=== PATIENT | male | born 1985 | race American Indian/Alaskan Native ===

== ENCOUNTER 2017-07-14 09:18 | Inpatient (IN) | payer BC ==
[2017-07-14] MEDS ORDERED: Sodium Chloride 0.9% 1,000 ML IV STA ×2 (09:48→11:53)
[2017-07-14 10:15] LABS: BASO # 0.1 K/uL (0.0-0.2); BASO % 0.6 % (0.0-2.0); EOS # 0.2 K/uL (0.0-0.7); EOS % 1.5 % (0.0-4.0); HEMOGLOBIN 14.2 g/dL (12.0-18.0); LYMPH # 2.2 K/uL (1.0-4.3); LYMPH % 15.1 % (20.0-40.0); MEAN CELL VOLUME 92.7 fl (80.0-94.0); MEAN CORPUSCULAR HEMOGLOBIN 31.1 pg (27.0-31.0); MEAN CORPUSCULAR HGB CONC 33.5 g/dL (33.0-37.0); MEAN PLATELET VOLUME 8.5 fl (7.2-11.7); MONO # 0.9 K/uL (0.0-0.8); MONO % 6.4 % (0.0-10.0); NEUT # 11.1 K/uL (1.8-7.0); NEUT % 76.4 % (50.0-75.0); NRBC % 0.1 % (0.0-0.0); RBC 4.56 Mil/uL (4.40-5.90); RED CELL DISTRIBUTION WIDTH 14.1 % (11.5-14.5); WHITE BLOOD COUNT 14.6 K/uL (4.8-10.8)
[2017-07-14 10:27] LABS: ALB/GLOB RATIO 1.5 (1.0-2.1); ALBUMIN 4.7 g/dL (3.5-5.0); ALT/SGPT 53 U/L (21-72); AST/SGOT 95 U/L (17-59); BLOOD UREA NITROGEN 15 mg/dl (9-20); GFR AFRICAN-AMERICAN > 60; GFR NON-AFRICAN AMERICAN > 60; LIPASE 66 U/L (23-300)
--- NOTE | 2017-07-14 10:42 | ED PDOC ---
HPI: Abdomen Time Seen by Provider: 07/14/17 09:47 Chief Complaint (Nursing): Abdominal Pain Chief Complaint (Provider): epigastric pain History Per: Patient History/Exam Limitations: no limitations Onset/Duration Of Symptoms: Hrs (1) Outside of [place] travel?: No Current Symptoms Are (Timing): Still Present Location Of Pain/Discomfort: Epigastric Quality Of Discomfort: Sharp, Cramping Associated Symptoms: Nausea, Vomiting, Loss Of Appetite Exacerbating Factors: None Alleviating Factors: None Additional Complaint(s): 31yo male presents c/o sudden onset upper abd pain associated with nonbloody vomiting. Started while at work, has had similar episodes in past. Denies alcohol use, melena, fever, chest pain or SOB. +vomiting in ED. Past Medical History Reviewed: Historical Data, Nursing Documentation, Vital Signs Vital Signs: Last Vital Signs Temp 98.4 F 07/14/17 11:41 Pulse 57 L 07/14/17 11:41 Resp 16 07/14/17 11:41 BP 148/71 07/14/17 11:41 Pulse Ox 100 07/14/17 10:42 - Medical History PMH: Hiatal Hernia (2017) Other PMH: gastritis takes protonix daily - Family History Family History: States: Unknown Family Hx - Social History Alcohol: None - Immunization History Hx Tetanus Toxoid Vaccination: No Hx Influenza Vaccination: Yes Hx Pneumococcal Vaccination: No - Home Medications Home Medications: Ambulatory Orders Medication Instructions Recorded Pantoprazole Sodium [Protonix] 1 tab PO DAILY 07/14/17 - Allergies Allergies/Adverse Reactions: Allergies Allergy/AdvReac Type Severity Reaction Status Date / Time No Known Allergies Allergy Verified 02/02/17 20:17 Review of Systems ROS Statement: Except As Marked, All Systems Reviewed And Found Negative Constitutional: Negative for: Fever, Chills Cardiovascular: Negative for: Chest Pain, Palpitations Respiratory: Negative for: Cough, Shortness of Breath Gastrointestinal: Positive for: Nausea, Vomiting, Abdominal Pain Genitourinary Male: Negative for: Dysuria Musculoskeletal: Negative for: Neck Pain Skin: Negative for: Rash, Lesions, Jaundice Neurological: Negative for: Weakness Physical Exam - Reviewed Nursing Documentation Reviewed: Yes Vital Signs Reviewed: Yes - Physical Exam Appears: Positive for: Well, Non-toxic, No Acute Distress Head Exam: Positive for: ATRAUMATIC, NORMAL INSPECTION, NORMOCEPHALIC Skin: Positive for: Normal Color, Warm, DRY Eye Exam: Positive for: EOMI, Normal appearance, PERRL ENT: Positive for: Normal ENT Inspection Neck: Positive for: Normal, Painless ROM Cardiovascular/Chest: Positive for: Regular Rate, Rhythm Respiratory: Positive for: CNT, Normal Breath Sounds Gastrointestinal/Abdominal: Positive for: Bowel Sounds, Soft. Negative for: Tenderness, Guarding Back: Positive for: Normal Inspection Extremity: Positive for: Normal ROM Neurologic/Psych: Positive for: Alert, Oriented. Negative for: Motor/Sensory Deficits - Laboratory Results Result Diagrams: 07/14/17 10:11 07/14/17 10:11 - ECG O2 Sat by Pulse Oximetry: 100 Medical Decision Making Medical Decision Making: workup for abd pain and vomiting initiated, labs, zofran, toradol and IVF ordered. labs reviewed, +elevated WBC w left shift and mild elev transaminases. normal TBili and Alk phos, normal renal function. Accession No. : [id number] Patient Name / ID : EBONY MARIN / [id number] Exam Date : 07/14/2017 12:31:13 ( Approved ) Study Comment : Sex / Age : M / 31Y Creator : Vaughn Flores MD Dictator : Vaughn Flores MD Vegetable [employer] Farmworker : Respiratory Care Assistant : Vaughn Flores MD Approver2 : Report Date : 07/14/2017 13:06:07 My Comment : PROCEDURE: CT Abdomen and Pelvis with contrast HISTORY: upper abd pain vomiting elev WBC COMPARISON: None. TECHNIQUE: Contrast dose: 95 mL Omnipaque 300 Radiation dose: Total exam DLP = 427.98 mGy-cm. This CT exam was performed using one or more of the following dose reduction techniques: Automated exposure control, adjustment of the mA and/or kV according to patient size, and/or use of iterative reconstruction technique. FINDINGS: LOWER THORAX: Unremarkable. LIVER: Minimal hepatomegaly. The liver measures approximately 19.2 cm craniocaudal. Smooth contour. No mass. No biliary dilatation. There is mild nonspecific periportal edema. GALLBLADDER AND BILE DUCTS: Gallbladder wall is diffusely thickened/ edematous. No calcified gallstones are identified. The gallbladder appears nondistended. PANCREAS: Unremarkable. No gross lesion or ductal dilatation. SPLEEN: Unremarkable. ADRENALS: Unremarkable. No mass. KIDNEYS AND URETERS: Unremarkable. No hydronephrosis. No solid mass. VASCULATURE: Unremarkable. No aortic aneurysm. BOWEL: Unremarkable. No obstruction. No gross mural thickening. APPENDIX: Normal appendix. PERITONEUM: Unremarkable. No free fluid. No free air. LYMPH NODES: Unremarkable. No enlarged lymph nodes. BLADDER: Unremarkable. REPRODUCTIVE: Normal prostate BONES: No acute fracture. OTHER FINDINGS: None. IMPRESSION: Nonspecific periportal edema. Nonspecific gallbladder wall thickening/ edema without evidence of calcified gallstones. No other significant abnormality. No evidence of biliary obstruction. Accession No. : [id number] Patient Name / ID : EBONY MARIN / [id number] Exam Date : 07/14/2017 14:31:09 ( Approved ) Study Comment : Sex / Age : M / 31Y Creator : Lisette Lewis Dictator : Lisette Lewis Vegetable I Farmworker : Respiratory Care Assistant : Lisette Lewis Approver2 : Report Date : 07/14/2017 15:15:02 My Comment : HISTORY: RUQ US for abnormal GB on CT COMPARISON: None. TECHNIQUE: Sonographic evaluation of the right upper quadrant of the abdomen. FINDINGS: LIVER: Measures 15.3 cm in length. Normal echogenicity of the liver parenchyma. No mass. No intrahepatic bile duct dilatation. GALLBLADDER: No gallstones are gallbladder sludge appreciated. No gross polyps appreciated. The gallbladder wall however is thickened measuring up to 6 mm. No positive sonographic Ennis sign is technologist reported. The gallbladder wall is mild - moderately distended COMMON BILE DUCT: Measures 4 mm. No stones. No dilatation. PANCREAS: Unremarkable as visualized. No mass. No ductal dilatation. RIGHT KIDNEY: Measures 10.2 x 4.4 x 5.0 cm in length. Normal echogenicity. No calculus, mass, or hydronephrosis. AORTA: No aneurysmal dilatation. IVC: Unremarkable. OTHER FINDINGS: None . IMPRESSION: Gallbladder wall thickening without gallstones or pericholecystic fluid. No positive Ennis sign reported. Given the clinical context -the possibility of an acalculus chronic cholecystitis is raised. No dilated ducts d/w Dr Myles travel service consultant surgery, rec starting Abx and obtaining HIDA scan Call placed to president and ceo and Eleanor Avendano for nelson admitting 4p re-eval remains w pain and active +bilious vomiting, additional antiemetic ordered. Disposition - Clinical Impression Clinical Impression: Acalculous cholecystitis, Vomiting, Leukocytosis - Patient ED Disposition Is Patient to be Admitted: Yes Counseled Patient/Family Regarding: Studies Performed - Disposition Disposition Time: 15:01 Condition: STABLE Forms: [employer] (E[place]ian)
[2017-07-14] MEDS ORDERED: Morphine 4 MG/ML VIAL ONE ×3 (11:56→16:44)
[2017-07-14] MEDS ORDERED: Sodium Chloride 0.9% 50 ML IV ONE (12:02)
[2017-07-14] MEDS ORDERED: Iohexol 300 100 ML IJ ONE (12:02)
[2017-07-14] MEDS: Morphine 4 MG/ML VIAL IV STA ×2 (12:09→16:52)
--- NOTE | 2017-07-14 13:07 | CT ---
PROCEDURE: CT Abdomen and Pelvis with contrast HISTORY: upper abd pain vomiting elev WBC COMPARISON: None. TECHNIQUE: Contrast dose: 95 mL Omnipaque 300 Radiation dose: Total exam DLP = 427.98 mGy-cm. This CT exam was performed using one or more of the following dose reduction techniques: Automated exposure control, adjustment of the mA and/or kV according to patient size, and/or use of iterative reconstruction technique. FINDINGS: LOWER THORAX: Unremarkable. LIVER: Minimal hepatomegaly. The liver measures approximately 19.2 cm craniocaudal. Smooth contour. No mass. No biliary dilatation. There is mild nonspecific periportal edema. GALLBLADDER AND BILE DUCTS: Gallbladder wall is diffusely thickened/ edematous. No calcified gallstones are identified. The gallbladder appears nondistended. PANCREAS: Unremarkable. No gross lesion or ductal dilatation. SPLEEN: Unremarkable. ADRENALS: Unremarkable. No mass. KIDNEYS AND URETERS: Unremarkable. No hydronephrosis. No solid mass. VASCULATURE: Unremarkable. No aortic aneurysm. BOWEL: Unremarkable. No obstruction. No gross mural thickening. APPENDIX: Normal appendix. PERITONEUM: Unremarkable. No free fluid. No free air. LYMPH NODES: Unremarkable. No enlarged lymph nodes. BLADDER: Unremarkable. REPRODUCTIVE: Normal prostate BONES: No acute fracture. OTHER FINDINGS: None. IMPRESSION: Nonspecific periportal edema. Nonspecific gallbladder wall thickening/ edema without evidence of calcified gallstones. No other significant abnormality. No evidence of biliary obstruction.
--- NOTE | 2017-07-14 15:16 | US ---
HISTORY: RUQ US for abnormal GB on CT COMPARISON: None. TECHNIQUE: Sonographic evaluation of the right upper quadrant of the abdomen. FINDINGS: LIVER: Measures 15.3 cm in length. Normal echogenicity of the liver parenchyma. No mass. No intrahepatic bile duct dilatation. GALLBLADDER: No gallstones are gallbladder sludge appreciated. No gross polyps appreciated. The gallbladder wall however is thickened measuring up to 6 mm. No positive sonographic Ennis sign is technologist reported. The gallbladder wall is mild - moderately distended COMMON BILE DUCT: Measures 4 mm. No stones. No dilatation. PANCREAS: Unremarkable as visualized. No mass. No ductal dilatation. RIGHT KIDNEY: Measures 10.2 x 4.4 x 5.0 cm in length. Normal echogenicity. No calculus, mass, or hydronephrosis. AORTA: No aneurysmal dilatation. IVC: Unremarkable. OTHER FINDINGS: None . IMPRESSION: Gallbladder wall thickening without gallstones or pericholecystic fluid. No positive Ennis sign reported. Given the clinical context -the possibility of an acalculus chronic cholecystitis is raised. No dilated ducts
[2017-07-14] MEDS ORDERED: Piperacillin/Tazobact 3.375 GM in Sodium Chloride 0.9% 100 ML IVPB STA (16:09)
[2017-07-14] MEDS ORDERED: Morphine 4 MG/ML VIAL IV STA (17:02)
[2017-07-14] MEDS ORDERED: Piperacillin/Tazobact 3.375 gm Inj IVPB ONE (17:14)
[2017-07-14 19:42] LABS: PARTIAL THROMBOPLASTIN TIME 31.8 Seconds (25.6-37.1); PROTHROMBIN TIME 10.8 Seconds (9.8-13.1)
--- NOTE | 2017-07-14 20:18 | CP.PCM.CON ---
History of Present Illness - History of Present Illness History of Present Illness: General Surgery: Dr Myles pt for HIDa in AM. full consult to follow. maintain npo. Past Patient History - Infectious Disease Hx of Infectious Diseases: None - Past Social History Alcohol: None - GASTROINTESTINAL Hx Colitis: Yes - PSYCHIATRIC Hx Substance Use: No - SURGICAL HISTORY Hx Surgeries: No - ANESTHESIA Hx Anesthesia: No Meds Allergies/Adverse Reactions: Allergies Allergy/AdvReac Type Severity Reaction Status Date / Time No Known Allergies Allergy Verified 02/02/17 20:17 - Medications Medications: Current Medications Hydromorphone HCl (Dilaudid) 0.5 mg IVP Q3H PRN PRN Reason: Pain, severe (8-10) Sodium Chloride (Sodium Chloride 0.9%) 1,000 mls @ 150 mls/hr IV .Q6H40M JP Piperacillin Sod/Tazobactam (Sod 3.375 gm/ Sodium Chloride) 100 mls @ 100 mls/ hr IVPB Q6 JP PRN Reason: Protocol Ondansetron HCl (Zofran Inj) 4 mg IVP Q4 PRN PRN Reason: Nausea/Vomiting Pantoprazole Sodium (Protonix Inj) 40 mg IVP DAILY [facility] Results - Vital Signs Recent Vital Signs: Last Vital Signs Temp 98.9 F 07/14/17 17:35 Pulse 76 07/14/17 17:35 Resp 18 07/14/17 17:35 BP 144/90 07/14/17 17:35 Pulse Ox 97 07/14/17 17:35 - Labs Result Diagrams: 07/14/17 10:11 07/14/17 10:11 Labs: Laboratory Results - last 24 hr 07/14/17 07/14/17 07/14/17 10:11 10:11 19:19 WBC 14.6 H RBC 4.56 Hgb 14.2 Hct 42.2 MCV 92.7 MCH 31.1 H MCHC 33.5 RDW 14.1 Plt Count 201 MPV 8.5 Neut % (Auto) 76.4 H Lymph % (Auto) 15.1 L [place] % (Auto) 6.4 Eos % (Auto) 1.5 Baso % (Auto) 0.6 Neut # 11.1 H Lymph # 2.2 [place] # 0.9 H Eos # 0.2 Baso # 0.1 PT 10.8 INR 1.0 APTT 31.8 Sodium 143 Potassium 3.6 Chloride 102 Carbon Dioxide 28 Anion Gap 17 BUN 15 Creatinine 1.2 Est GFR ( Amer) > 60 Est GFR (Non-Af Amer) > 60 Random Glucose 165 H Calcium 10.0 Total Bilirubin 1.3 AST 95 H ALT 53 Alkaline Phosphatase 85 Total Protein 7.8 Albumin 4.7 Globulin 3.1 Albumin/Globulin Ratio 1.5 Lipase 66
[2017-07-14] MEDS ORDERED: HYDROmorphone 0.5 mg/0.5 ml ISec IVP STA (20:41)
--- NOTE | 2017-07-14 20:43 | CP.PCM.CON ---
History of Present Illness - History of Present Illness History of Present Illness: 31 y.o. male comes to the hospital c/o epigastric abdominal pain since this morning. Patient states that the pain started after he drank a protein shake. Reports multiple episodes of bilious vomiting, no blood in the vomitus. Reports 3 episodes of diarrhea yesterday, passing flatus. Denies any fever or chills. Patient states that he had similar episodes in the past but not as severe. Patient saw a lawyer for this problem and was worked up for Crohn's disease which he does not have as per patient. No sick contacts at home, no urinary symptoms. Had EGD in January of last year showing hiatal hernia and gastritis as per patient, also had a negative colonoscopy at the same time as well. Review of Systems - Constitutional Constitutional: As Per HPI - EENT Eyes: Other (unremarkable) Ears: Other (unremarkable) Nose/Mouth/Throat: Other (unremarkable) - Cardiovascular Cardiovascular: Other (unremarkable) - Respiratory Respiratory: Other (unremarkable) - Gastrointestinal Gastrointestinal: As Per HPI - Genitourinary Genitourinary: As Per HPI - Reproductive: Male Reproductive:Male: Other (unremarkable) - Musculoskeletal Musculoskeletal: Other (unremarkable) - Integumentary Integumentary: Other (unremarkable) - Neurological Neurological: Other (unremarkable) - Psychiatric Psychiatric: Other (unremarkable) - Endocrine Endocrine: Other (unremarkable) - Hematologic/Lymphatic Hematologic: absent: Other (unremarkable) Past Patient History - Infectious Disease Hx of Infectious Diseases: None - Past Social History Alcohol: None - CARDIAC Hx Cardiac Disorders: No - PULMONARY Hx Respiratory Disorders: No - NEUROLOGICAL Hx Neurological Disorder: No - HEENT Hx HEENT Problems: No - RENAL Hx Chronic Kidney Disease: No - ENDOCRINE/METABOLIC Hx Endocrine Disorders: No - HEMATOLOGICAL/ONCOLOGICAL Hx Blood Disorders: No - INTEGUMENTARY Hx Dermatological Problems: No - MUSCULOSKELETAL/RHEUMATOLOGICAL Hx Musculoskeletal Disorders: No - GASTROINTESTINAL Hx Gastrointestinal Disorders: Yes Hx Colitis: Yes Hx Gastritis: Yes - GENITOURINARY/GYNECOLOGICAL Hx Genitourinary Disorders: No - PSYCHIATRIC Hx Psychophysiologic Disorder: No Hx Substance Use: No - SURGICAL HISTORY Hx Surgeries: No - ANESTHESIA Hx Anesthesia: No Meds Allergies/Adverse Reactions: Allergies Allergy/AdvReac Type Severity Reaction Status Date / Time No Known Allergies Allergy Verified 02/02/17 20:17 - Medications Medications: Current Medications Hydromorphone HCl (Dilaudid) 0.5 mg IVP Q3H PRN PRN Reason: Pain, severe (8-10) Sodium Chloride (Sodium Chloride 0.9%) 1,000 mls @ 150 mls/hr IV .Q6H40M JP Piperacillin Sod/Tazobactam (Sod 3.375 gm/ Sodium Chloride) 100 mls @ 100 mls/ hr IVPB Q6 JP PRN Reason: Protocol Ondansetron HCl (Zofran Inj) 4 mg IVP Q4 PRN PRN Reason: Nausea/Vomiting Pantoprazole Sodium (Protonix Inj) 40 mg IVP DAILY [facility] Physical Exam - Constitutional Appears: Well, Non-toxic, No Acute Distress - Head Exam Head Exam: ATRAUMATIC, NORMAL INSPECTION, NORMOCEPHALIC - Eye Exam Eye Exam: EOMI, Normal appearance, PERRL Pupil Exam: NORMAL ACCOMODATION, PERRL - ENT Exam ENT Exam: Mucous Membranes Dry - Neck Exam Neck exam: Positive for: Full Rom, Normal Inspection - Respiratory Exam Respiratory Exam: Clear to Auscultation Bilateral, NORMAL BREATHING PATTERN - Cardiovascular Exam Cardiovascular Exam: REGULAR RHYTHM, +S1, +S2 - GI/Abdominal Exam GI & Abdominal Exam: Normal Bowel Sounds, Soft Additional comments: Tender in the epigastrium, ND, BS+, no rebound, no guarding, negative Ennis's sign - Rectal Exam Rectal Exam: Deferred - Extremities Exam Extremities exam: Positive for: full ROM, normal inspection - Back Exam Back exam: NORMAL INSPECTION - Neurological Exam Neurological exam: Alert, CN II-XII Intact, Oriented x3 - Psychiatric Exam Psychiatric exam: Normal Affect, Normal Mood - Skin Skin Exam: Dry, Intact, Normal Color, Warm Results - Vital Signs Recent Vital Signs: Last Vital Signs Temp 98.9 F 07/14/17 17:35 Pulse 76 07/14/17 17:35 Resp 18 07/14/17 17:35 BP 144/90 07/14/17 17:35 Pulse Ox 97 07/14/17 17:35 - Labs Result Diagrams: 07/14/17 10:11 07/14/17 10:11 Labs: Laboratory Results - last 24 hr 07/14/17 07/14/17 07/14/17 10:11 10:11 19:19 WBC 14.6 H RBC 4.56 Hgb 14.2 Hct 42.2 MCV 92.7 MCH 31.1 H MCHC 33.5 RDW 14.1 Plt Count 201 MPV 8.5 Neut % (Auto) 76.4 H Lymph % (Auto) 15.1 L [place] % (Auto) 6.4 Eos % (Auto) 1.5 Baso % (Auto) 0.6 Neut # 11.1 H Lymph # 2.2 [place] # 0.9 H Eos # 0.2 Baso # 0.1 PT 10.8 INR 1.0 APTT 31.8 Sodium 143 Potassium 3.6 Chloride 102 Carbon Dioxide 28 Anion Gap 17 BUN 15 Creatinine 1.2 Est GFR ( Amer) > 60 Est GFR (Non-Af Amer) > 60 Random Glucose 165 H Calcium 10.0 Total Bilirubin 1.3 AST 95 H ALT 53 Alkaline Phosphatase 85 Total Protein 7.8 Albumin 4.7 Globulin 3.1 Albumin/Globulin Ratio 1.5 Lipase 66 - Imaging and Cardiology CT scan - abdomen Status: Image reviewed by me, Report reviewed by me Assessment & Plan - Assessment and Plan (Free Text) Assessment: 31 y.o. male with abdominal pain r/o acalculus cholecystitis Plan: - Keep NPO - IV fluids - Pain control - HIDA scan to r/o cholecystitis - Zofran prn - Protonix - Recommend GI consultation - Repeat labs in am - Will follow
[2017-07-14] MEDS ORDERED: HYDROmorphone 0.5 mg/0.5 ml ISec ONE (21:26)
[2017-07-14] MEDS: Sodium Chloride 0.9% 1,000 ML IV SCH (22:51)
[2017-07-15] MEDS: Sodium Chloride 0.9% 1,000 ML IV SCH ×3 (00:16→14:10)
[2017-07-15] MEDS: Piperacillin/Tazobact 3.375 GM in Sodium Chloride 0.9% 100 ML IVPB SCH ×5 (00:16→16:17)
[2017-07-15 07:14] LABS: BASO % 0.4 % (0.0-2.0); EOS % 0.1 % (0.0-4.0); LYMPH # 1.5 K/uL (1.0-4.3); LYMPH % 13.5 % (20.0-40.0); MEAN CELL VOLUME 93.5 fl (80.0-94.0); MEAN CORPUSCULAR HEMOGLOBIN 31.2 pg (27.0-31.0); MEAN CORPUSCULAR HGB CONC 33.3 g/dL (33.0-37.0); MEAN PLATELET VOLUME 8.9 fl (7.2-11.7); MONO # 0.9 K/uL (0.0-0.8); NEUT # 8.5 K/uL (1.8-7.0); NRBC % 0.1 % (0.0-0.0); RBC 4.17 Mil/uL (4.40-5.90); RED CELL DISTRIBUTION WIDTH 14.4 % (11.5-14.5); WHITE BLOOD COUNT 10.9 K/uL (4.8-10.8)
[2017-07-15 07:37] LABS: ALB/GLOB RATIO 1.3 (1.0-2.1); ALBUMIN 3.9 g/dL (3.5-5.0); ALT/SGPT 49 U/L (21-72); AST/SGOT 46 U/L (17-59); BLOOD UREA NITROGEN 11 mg/dl (9-20); GFR AFRICAN-AMERICAN > 60; GFR NON-AFRICAN AMERICAN > 60; LIPASE 33 U/L (23-300)
--- NOTE | 2017-07-15 08:16 | CP.PCM.HP ---
History of Present Illness - History of Present Illness History of Present Illness: pt admitted for aculculus cholecystitis. imaging from er noted. bw noted. wbc count trending down. pt states started yesterday just prior to arrival after drinkning protein shake. no med/surg hx. no f/c. + n/v. no diarrhea. Present on Admission - Present on Admission Any Indicators Present on Admission: No Review of Systems - Gastrointestinal Gastrointestinal: As Per HPI, Abdominal Pain, Nausea, Vomiting Past Patient History - Infectious Disease Hx of Infectious Diseases: None - Past Medical History & Family History Past Medical History?: Yes - Past Social History Smoking Status: Former Smoker - CARDIAC Hx Cardiac Disorders: No - PULMONARY Hx Respiratory Disorders: No - NEUROLOGICAL Hx Neurological Disorder: No - HEENT Hx HEENT Problems: No - RENAL Hx Chronic Kidney Disease: No - ENDOCRINE/METABOLIC Hx Endocrine Disorders: No - HEMATOLOGICAL/ONCOLOGICAL Hx Blood Disorders: No Hx AIDS: No Hx Human Immunodeficiency Virus (HIV): No - INTEGUMENTARY Hx Dermatological Problems: No - MUSCULOSKELETAL/RHEUMATOLOGICAL Hx Musculoskeletal Disorders: No Hx Falls: No - GASTROINTESTINAL Hx Gastrointestinal Disorders: Yes Hx Gastritis: Yes Other/Comment: hiatal hernia - GENITOURINARY/GYNECOLOGICAL Hx Genitourinary Disorders: No - PSYCHIATRIC Hx Psychophysiologic Disorder: No - SURGICAL HISTORY Hx Surgeries: No Other/Comment: egd jan 2017 - ANESTHESIA Hx Anesthesia: No Hx Anesthesia Reactions: No Meds Allergies/Adverse Reactions: Allergies Allergy/AdvReac Type Severity Reaction Status Date / Time No Known Allergies Allergy Verified 02/02/17 20:17 Physical Exam - Constitutional Appears: Well, Non-toxic, No Acute Distress - Head Exam Head Exam: ATRAUMATIC, NORMAL INSPECTION, NORMOCEPHALIC - Eye Exam Eye Exam: EOMI, Normal appearance, PERRL Pupil Exam: NORMAL ACCOMODATION, PERRL - ENT Exam ENT Exam: Mucous Membranes Moist, Normal Exam - Neck Exam Neck exam: Positive for: Normal Inspection - Respiratory Exam Respiratory Exam: Clear to Auscultation Bilateral, NORMAL BREATHING PATTERN - Cardiovascular Exam Cardiovascular Exam: REGULAR RHYTHM, RRR, +S1, +S2 - GI/Abdominal Exam GI & Abdominal Exam: Normal Bowel Sounds, Soft. absent: Tenderness - Extremities Exam Extremities exam: Positive for: full ROM, normal capillary refill, normal inspection, pedal pulses present - Back Exam Back exam: NORMAL INSPECTION - Neurological Exam Neurological exam: Alert, CN II-XII Intact, Normal Gait, Oriented x3, Reflexes Normal - Psychiatric Exam Psychiatric exam: Normal Affect, Normal Mood - Skin Skin Exam: Dry, Intact, Normal Color, Warm Results - Vital Signs Recent Vital Signs: Last Vital Signs Temp 99.0 F 07/15/17 07:50 Pulse 78 07/15/17 07:50 Resp 20 07/15/17 07:50 BP 146/81 07/15/17 07:50 Pulse Ox 98 07/15/17 07:50 - Labs Result Diagrams: 07/15/17 06:00 07/15/17 06:00 Labs: Laboratory Results - last 24 hr 07/14/17 07/14/17 07/14/17 10:11 10:11 19:19 WBC 14.6 H RBC 4.56 Hgb 14.2 Hct 42.2 MCV 92.7 MCH 31.1 H MCHC 33.5 RDW 14.1 Plt Count 201 MPV 8.5 Neut % (Auto) 76.4 H Lymph % (Auto) 15.1 L [place] % (Auto) 6.4 Eos % (Auto) 1.5 Baso % (Auto) 0.6 Neut # 11.1 H Lymph # 2.2 [place] # 0.9 H Eos # 0.2 Baso # 0.1 PT 10.8 INR 1.0 APTT 31.8 Sodium 143 Potassium 3.6 Chloride 102 Carbon Dioxide 28 Anion Gap 17 BUN 15 Creatinine 1.2 Est GFR ( Amer) > 60 Est GFR (Non-Af Amer) > 60 Random Glucose 165 H Calcium 10.0 Total Bilirubin 1.3 AST 95 H ALT 53 Alkaline Phosphatase 85 Total Protein 7.8 Albumin 4.7 Globulin 3.1 Albumin/Globulin Ratio 1.5 Lipase 66 07/15/17 07/15/17 06:00 06:00 WBC 10.9 H RBC 4.17 L Hgb 13.0 Hct 39.0 MCV 93.5 MCH 31.2 H MCHC 33.3 RDW 14.4 Plt Count 182 MPV 8.9 Neut % (Auto) 78.0 H Lymph % (Auto) 13.5 L [place] % (Auto) 8.0 Eos % (Auto) 0.1 Baso % (Auto) 0.4 Neut # 8.5 H Lymph # 1.5 [place] # 0.9 H Eos # 0.0 Baso # 0.0 PT INR APTT Sodium 142 Potassium 3.9 Chloride 106 Carbon Dioxide 26 Anion Gap 14 BUN 11 Creatinine 1.3 Est GFR ( Amer) > 60 Est GFR (Non-Af Amer) > 60 Random Glucose 91 Calcium 9.0 Total Bilirubin 1.2 AST 46 ALT 49 Alkaline Phosphatase 68 Total Protein 6.8 Albumin 3.9 Globulin 2.9 Albumin/Globulin Ratio 1.3 Lipase 33 Assessment & Plan (1) DVT prophylaxis Assessment and Plan: scd nad a ehose ambulation hold lovenox for now until surgical option decided Status: Acute (2) Acalculous cholecystitis Assessment and Plan: zosyn surgery, gi ivf, pain control hida scan Status: Acute Decision To Admit - Pt Status Changed To: Hospital Disposition Of: Inpatient - Admit Certification Admit to Inpatient:: After my assessment, the patient will require hospitalization for at least two midnights. This is because of the severity of symptoms shown, intensity of services needed, and/or the medical risk in this patient being treated as an outpatient. - . Bed Request Type: Med/Surg Admitting Physician: Caitlyn Lima
--- NOTE | 2017-07-15 08:41 | CP.PCM.PN ---
<Sebastien Knapp - Last Filed: 07/15/17 08:39> Subjective - Date & Time of Evaluation Date of Evaluation: 07/15/17 Time of Evaluation: 08:39 - Subjective Subjective: General Surgery Progress Note for Shar Suarez 31M was seen and examined this AM at bedside. No acute events overnight. The patient is still complaining of nausea however no kimberly emesis. Nothing makes it better or worse. He reports the pain as being mostly epigastric. Objective - Vital Signs/Intake and Output Vital Signs (last 24 hours): Temp Pulse Resp BP Pulse Ox 99.0 F 78 20 146/81 98 07/15/17 07:50 07/15/17 07:50 07/15/17 07:50 07/15/17 07:50 07/15/17 07:50 - Medications Medications: Current Medications Hydromorphone HCl (Dilaudid) 0.5 mg IVP Q3H PRN PRN Reason: Pain, severe (8-10) Last Admin: 07/15/17 07:50 Dose: 0.5 mg Sodium Chloride (Sodium Chloride 0.9%) 1,000 mls @ 150 mls/hr IV .Q6H40M JP Last Admin: 07/15/17 00:16 Dose: Not Given Piperacillin Sod/Tazobactam (Sod 3.375 gm/ Sodium Chloride) 100 mls @ 100 mls/ hr IVPB Q6 JP PRN Reason: Protocol Last Admin: 07/15/17 03:38 Dose: 100 mls/hr Ondansetron HCl (Zofran Inj) 4 mg IVP Q4 PRN PRN Reason: Nausea/Vomiting Pantoprazole Sodium (Protonix Inj) 40 mg IVP DAILY JP - Labs Labs: 07/15/17 06:00 07/15/17 06:00 PT 10.8 Seconds (9.8-13.1) 07/14/17 19:19 INR 1.0 (0.9-1.2) 07/14/17 19:19 APTT 31.8 Seconds (25.6-37.1) 07/14/17 19:19 - Constitutional Appears: Other (Patrient crunched over) - Head Exam Head Exam: ATRAUMATIC, NORMOCEPHALIC - Eye Exam Eye Exam: EOMI - ENT Exam ENT Exam: Mucous Membranes Moist - Respiratory Exam Respiratory Exam: NORMAL BREATHING PATTERN - Cardiovascular Exam Cardiovascular Exam: +S1, +S2 - GI/Abdominal Exam GI & Abdominal Exam: Soft. absent: Firm, Guarding, Rigid, Tenderness - Neurological Exam Neurological Exam: Alert, Awake - Psychiatric Exam Psychiatric exam: Normal Affect, Normal Mood - Skin Skin Exam: Dry, Intact Assessment and Plan - Assessment and Plan (Free Text) Assessment: This is a 31M with no PMH complaining of abdominal pain VSS Labs WNL Followup HIDA Follow Up GI recs NPO Continue medical management per primary team D/W Dr. Shar Knapp PGY2 <Aashish Myles - Last Filed: 07/15/17 14:13> Subjective - Date & Time of Evaluation Time of Evaluation: 13:35 - Subjective Subjective: Patient was seen and examined at the bedside. Currently states that feels much better, denies any abdominal pain. Objective - Vital Signs/Intake and Output Vital Signs (last 24 hours): Temp Pulse Resp BP Pulse Ox 99.0 F 78 20 146/81 98 07/15/17 07:50 07/15/17 07:50 07/15/17 07:50 07/15/17 07:50 07/15/17 07:50 - Medications Medications: Current Medications Hydromorphone HCl (Dilaudid) 0.5 mg IVP Q3H PRN PRN Reason: Pain, severe (8-10) Last Admin: 07/15/17 07:50 Dose: 0.5 mg Sodium Chloride (Sodium Chloride 0.9%) 1,000 mls @ 150 mls/hr IV .Q6H40M [facility] Last Admin: 07/15/17 14:10 Dose: Not Given Piperacillin Sod/Tazobactam (Sod 3.375 gm/ Sodium Chloride) 100 mls @ 100 mls/ hr IVPB Q6 JP PRN Reason: Protocol Last Admin: 07/15/17 12:53 Dose: 100 mls/hr Ondansetron HCl (Zofran Inj) 4 mg IVP Q4 PRN PRN Reason: Nausea/Vomiting Pantoprazole Sodium (Protonix Inj) 40 mg IVP DAILY [facility] Last Admin: 07/15/17 10:24 Dose: 40 mg Sucralfate (Carafate Oral Susp) 1 gm PO QID [facility] - Labs Labs: 07/15/17 06:00 07/15/17 06:00 PT 10.8 Seconds (9.8-13.1) 07/14/17 19:19 INR 1.0 (0.9-1.2) 07/14/17 19:19 APTT 31.8 Seconds (25.6-37.1) 07/14/17 19:19 Assessment and Plan - Assessment and Plan (Free Text) Plan: - Follow up HIDA results - GI follow up - Continue Protonix - Carafate - IV fluids - Start clear liquid diet - No general surgery intervention at present time - Will follow
--- NOTE | 2017-07-15 14:02 | NM ---
PROCEDURE: Nuclear Medicine Hepatobiliary scan. HISTORY: possible acalculous cholecystitis COMPARISON: July 14, 2017. Abdominal ultrasound TECHNIQUE: 5.1 mCi of technetium 99m Mebrofenin was administered intravenously. Planar images of the abdomen were obtained at 5 min intervals to 60 mins. Delayed images were also obtained. FINDINGS: LIVER: Timely and homogenous uptake. COMMON BILE DUCT: identified at 10 mins. GALLBLADDER: identified at 10 mins. SMALL BOWEL: Identified at 10 mins. IMPRESSION: Normal Hepatobiliary Scan. The cystic duct is patent.
[2017-07-15 16:04] VITALS: BP 122/80; PULSE 68; RESP 18; TEMP 98.7; O2SAT 99
[2017-07-15] MEDS ORDERED: Sucralfate 1 gm/10 ml Oral Susp UD PO SCH (17:00)
--- NOTE | 2017-07-16 02:51 | CON ---
DATE: 07/15/2017 REFERRING PHYSICIAN: Dr. Avendano. REASON FOR CONSULTATION: Abdominal pain. HISTORY OF PRESENT ILLNESS: This is a pleasant 31-year-old male with history of intermittent biliary colic for several years and history of hiatal hernia, comes in for right upper quadrant discomfort that radiates into the stomach, some nausea, vomiting all of which was resolved. The pain is improving, asked for food. Currently lying in bed comfortably, in no apparent distress. PAST MEDICAL HISTORY: As above. PAST SURGICAL HISTORY: As above. MEDICATIONS: Have been reviewed. REVIEW OF SYSTEMS: All other systems have been reviewed, negative apart from the HPI. PHYSICAL EXAMINATION: VITAL SIGNS: Here in the hospital are grossly unremarkable. GENERAL: This is a pleasant, middle-aged man, lying in bed comfortably, in no apparent distress. HEENT: Head: Normocephalic and atraumatic. Eyes: Pupils are equally reactive to light bilaterally. No conjunctival pallor or icterus. NECK: Supple. Normal range of motion. No lymphadenopathy appreciated. LUNGS: Coarse breath sounds bilaterally. HEART: S1, S2. ABDOMEN: Soft, nontender and some discomfort in the right upper quadrant. No rebound, no guarding. RECTAL: Deferred. EXTREMITIES: Pulses present bilaterally. SKIN: Warm, dry, and intact. NEUROLOGIC: A and O x3. LABORATORY DATA: All labs and relevant radiology have been reviewed. Labs include WBC which is improving from 7.9, hemoglobin of 13. LFTs are essentially unremarkable . Ultrasound shows gallbladder wall thickening. CAT scan is the same. ASSESSMENT AND PLAN: This is a 31-year-old male with questionable biliary colic, acalculous cholecystitis. Plan for HIDA scan. If the HIDA scan negative, we can proceed with a trial of p.o. feeds, PPI twice a day, and we will get an outpatient endoscopy. Thank you for the consult. Breezy Orta MD/ PhD cc: Dr. Avendano.
--- NOTE | 2017-07-17 08:12 | CP.PCM.DIS ---
Provider - Provider Date of Admission: 07/14/17 16:10 Attending physician: Caitlyn Lima MD Time Spent in preparation of Discharge (in minutes): 15 Diagnosis - Discharge Diagnosis (1) DVT prophylaxis Status: Acute (2) Acalculous cholecystitis Status: Acute Hospital Course - Lab Results Lab Results: Most Recent Lab Values WBC 10.9 K/uL (4.8-10.8) H 07/15/17 06:00 RBC 4.17 Mil/uL (4.40-5.90) L 07/15/17 06:00 Hgb 13.0 g/dL (12.0-18.0) 07/15/17 06:00 Hct 39.0 % (35.0-51.0) 07/15/17 06:00 MCV 93.5 fl (80.0-94.0) 07/15/17 06:00 MCH 31.2 pg (27.0-31.0) H 07/15/17 06:00 MCHC 33.3 g/dL (33.0-37.0) 07/15/17 06:00 RDW 14.4 % (11.5-14.5) 07/15/17 06:00 Plt Count 182 K/uL (130-400) 07/15/17 06:00 MPV 8.9 fl (7.2-11.7) 07/15/17 06:00 Neut % (Auto) 78.0 % (50.0-75.0) H 07/15/17 06:00 Lymph % (Auto) 13.5 % (20.0-40.0) L 07/15/17 06:00 [place] % (Auto) 8.0 % (0.0-10.0) 07/15/17 06:00 Eos % (Auto) 0.1 % (0.0-4.0) 07/15/17 06:00 Baso % (Auto) 0.4 % (0.0-2.0) 07/15/17 06:00 Neut # 8.5 K/uL (1.8-7.0) H 07/15/17 06:00 Lymph # 1.5 K/uL (1.0-4.3) 07/15/17 06:00 [place] # 0.9 K/uL (0.0-0.8) H 07/15/17 06:00 Eos # 0.0 K/uL (0.0-0.7) 07/15/17 06:00 Baso # 0.0 K/uL (0.0-0.2) 07/15/17 06:00 PT 10.8 Seconds (9.8-13.1) 07/14/17 19:19 INR 1.0 (0.9-1.2) 07/14/17 19:19 APTT 31.8 Seconds (25.6-37.1) 07/14/17 19:19 Sodium 142 mmol/l (132-148) 07/15/17 06:00 Potassium 3.9 MMOL/L (3.6-5.0) 07/15/17 06:00 Chloride 106 mmol/L (98-107) 07/15/17 06:00 Carbon Dioxide 26 mmol/L (22-30) 07/15/17 06:00 Anion Gap 14 (10-20) 07/15/17 06:00 BUN 11 mg/dl (9-20) 07/15/17 06:00 Creatinine 1.3 mg/dl (0.8-1.5) 07/15/17 06:00 Est GFR ( Amer) > 60 07/15/17 06:00 Est GFR (Non-Af Amer) > 60 07/15/17 06:00 Random Glucose 91 mg/dL (75-110) 07/15/17 06:00 Calcium 9.0 mg/dL (8.4-10.2) 07/15/17 06:00 Total Bilirubin 1.2 mg/dl (0.2-1.3) 07/15/17 06:00 AST 46 U/L (17-59) 07/15/17 06:00 ALT 49 U/L (21-72) 07/15/17 06:00 Alkaline Phosphatase 68 U/L (38-126) 07/15/17 06:00 Total Protein 6.8 G/DL (6.3-8.2) 07/15/17 06:00 Albumin 3.9 g/dL (3.5-5.0) 07/15/17 06:00 Globulin 2.9 gm/dL (2.2-3.9) 07/15/17 06:00 Albumin/Globulin Ratio 1.3 (1.0-2.1) 07/15/17 06:00 Lipase 33 U/L (23-300) 07/15/17 06:00 Discharge Exam - Head Exam Head Exam: ATRAUMATIC, NORMOCEPHALIC Discharge Plan - Discharge Medications Prescriptions: Amoxicillin/Clavulanate [Augmentin 875 MG-125 MG] 1 tab PO BID #14 tab Ondansetron [Zofran Odt] 4 mg PO Q8 PRN #20 tab.rapdis PRN Reason: Nausea/Vomiting Sucralfate [Carafate Oral Susp] 1 gm PO QID #250 ml - Follow Up Plan Condition: STABLE Disposition: HOME/ ROUTINE Instructions: Gastritis (DC), Cholecystitis (DC) Additional Instructions: final dx-acalculus cholecystitis ness po, cleared by surgery/gi f/u rmg and specialists 1 wk. rted prn
== END 2017-07-15 18:59 | disposition home or self-care (01) | DRG 446 ==
LOC: H.ER 09:18 → H.ERHOLD 16:10 → H.MEDSURG1 22:30
PROVIDERS: ADMIT Family Medicine; ATTEND Family Medicine
DX: K81.9 Cholecystitis, unspecified (principal); K29.70 Gastritis, unspecified, without bleeding; Z87.891 Personal history of nicotine dependence; K44.9 Diaphragmatic hernia without obstruction or gangrene

== ENCOUNTER 2017-09-10 08:26 | Emergency (ER) | payer BC ==
[2017-09-10 08:45] VITALS: BP 150/87; PULSE 69; RESP 20; TEMP 97.8; O2SAT 98
[2017-09-10] MEDS ORDERED: Sodium Chloride 0.9% 1,000 ML IV STA (08:53)
--- NOTE | 2017-09-10 08:59 | ED PDOC ---
HPI: Abdomen Time Seen by Provider: 09/10/17 08:33 Chief Complaint (Nursing): GI Problem Chief Complaint (Provider): GI problem History Per: Patient History/Exam Limitations: no limitations Onset/Duration Of Symptoms: Hrs (x3) Current Symptoms Are (Timing): Still Present Additional Complaint(s): 31 year old male with medical history of gallbladder disease, presents to the emergency department with a complaint of upper and right-sided abdominal pain associated with burning sensation, nausea and vomiting ongoing since 0600 this morning. He denied any fever, chills, diarrhea or bloody stools. PMD: Rios Morgan MD Past Medical History Reviewed: Historical Data, Nursing Documentation, Vital Signs Vital Signs: Last Vital Signs Temp 97.8 F 09/10/17 08:43 Pulse 69 09/10/17 08:43 Resp 20 09/10/17 08:43 BP 150/87 09/10/17 08:43 Pulse Ox 98 09/10/17 09:03 - Medical History PMH: Gastritis, Gall Bladder Disease, Hiatal Hernia (2017) Denies: HIV, Chronic Kidney Disease - Family History Family History: States: Unknown Family Hx - Social History Current smoker - smoking cessation education provided: No Alcohol: None Drugs: Denies - Immunization History Hx Tetanus Toxoid Vaccination: No Hx Influenza Vaccination: Yes Hx Pneumococcal Vaccination: No - Home Medications Home Medications: Ambulatory Orders Medication Instructions Recorded Pantoprazole Sodium [Protonix] 1 tab PO DAILY 07/14/17 Amoxicillin/Clavulanate [Augmentin 1 tab PO BID #14 tab 07/15/17 875 MG-125 MG] Ondansetron [Zofran Odt] 4 mg PO Q8 PRN #20 tab.rapdis 07/15/17 Sucralfate [Carafate Oral Susp] 1 gm PO QID #250 ml 07/15/17 Dicyclomine [Dicyclomine HCl] 10 mg PO Q8 #10 cap 09/10/17 Famotidine [Pepcid] 20 mg PO Q12 #20 tab 09/10/17 Ondansetron [Zofran] 4 mg PO Q8H #10 tab 09/10/17 - Allergies Allergies/Adverse Reactions: Allergies Allergy/AdvReac Type Severity Reaction Status Date / Time No Known Allergies Allergy Verified 09/10/17 08:43 Review of Systems ROS Statement: Except As Marked, All Systems Reviewed And Found Negative Constitutional: Negative for: Fever, Chills Gastrointestinal: Positive for: Nausea, Vomiting, Abdominal Pain (upper and right-sided assocated with burning). Negative for: Diarrhea, Hematochezia Physical Exam - Reviewed Nursing Documentation Reviewed: Yes Vital Signs Reviewed: Yes - Physical Exam Appears: Positive for: Non-toxic, No Acute Distress Cardiovascular/Chest: Positive for: Regular Rate, Rhythm, Chest Non Tender Respiratory: Positive for: Normal Breath Sounds. Negative for: Decreased Breath Sounds, Wheezing, Respiratory Distress Gastrointestinal/Abdominal: Positive for: Tenderness (epigastric and RUQ), Guarding Extremity: Positive for: Normal ROM (lower). Negative for: Pedal Edema ( bilateral), Calf Tenderness (bilateral) Neurologic/Psych: Positive for: Alert, Oriented - Laboratory Results Result Diagrams: 09/10/17 09:14 09/10/17 09:45 - ECG O2 Sat by Pulse Oximetry: 98 (RA) Pulse Ox Interpretation: Normal Medical Decision Making Medical Decision Making: Initial Impression: Epigastric and RUQ pain Initial Plan: * CMP * Lipase * Urine dipstick * CBC * Bentyl 10mg PO * NS 1,000ml IV per 100mls/hr * Pepcid 20mg IVP * Zofran 4mg IVP * US ABD with gallbladder Scribe Attestation: Documented by Valencia Smith, acting as a scribe for James Marques MD. Provider Scribe Attestation: All medical record entries made by the Scribe were at my direction and personally dictated by me. I have reviewed the chart and agree that the record accurately reflects my personal performance of the history, physical exam, medical decision making, and the department course for this patient. I have also personally directed, reviewed, and agree with the discharge instructions and disposition. Disposition - Clinical Impression Clinical Impression: Gastritis - Patient ED Disposition Is Patient to be Admitted: No Counseled Patient/Family Regarding: Studies Performed, Diagnosis, Need For Followup, Rx Given - Disposition Referrals: [facility] [Outside] Santiago Lan MD [Staff Provider] - Disposition: Routine/Home Disposition Time: 10:10 Condition: FAIR Prescriptions: Dicyclomine [Dicyclomine HCl] 10 mg PO Q8 #10 cap Famotidine [Pepcid] 20 mg PO Q12 #20 tab Ondansetron [Zofran] 4 mg PO Q8H #10 tab Instructions: Gastritis Forms: [facility] (Thai)
[2017-09-10 09:20] LABS: BASO # 0.1 K/uL (0.0-0.2); BASO % 0.8 % (0.0-2.0); EOS # 0.1 K/uL (0.0-0.7); HEMOGLOBIN 13.5 g/dL (12.0-18.0); LYMPH # 1.5 K/uL (1.0-4.3); LYMPH % 17.3 % (20.0-40.0); MEAN CELL VOLUME 93.6 fl (80.0-94.0); MEAN CORPUSCULAR HGB CONC 34.2 g/dL (33.0-37.0); MONO # 0.5 K/uL (0.0-0.8); MONO % 5.9 % (0.0-10.0); NEUT # 6.7 K/uL (1.8-7.0); NRBC % 0.1 % (0.0-0.0); RBC 4.21 Mil/uL (4.40-5.90); RED CELL DISTRIBUTION WIDTH 14.1 % (11.5-14.5); WHITE BLOOD COUNT 8.9 K/uL (4.8-10.8)
[2017-09-10 10:03] LABS: ALB/GLOB RATIO 1.4 (1.0-2.1); ALBUMIN 4.6 g/dL (3.5-5.0); ALT/SGPT 55 U/L (21-72); AST/SGOT 35 U/L (17-59); BLOOD UREA NITROGEN 10 mg/dl (9-20); CALCIUM 9.6 mg/dL (8.4-10.2); GFR AFRICAN-AMERICAN > 60; GFR NON-AFRICAN AMERICAN > 60; LIPASE 116 U/L (23-300)
--- NOTE | 2017-09-10 10:24 | US ---
HISTORY: h/o gallstones RUQ pain COMPARISON: None. TECHNIQUE: Sonographic evaluation of the right upper quadrant of the abdomen. FINDINGS: LIVER: Measures 17.7 cm in length. Normal echogenicity of the liver parenchyma. No mass. No intrahepatic bile duct dilatation. Normal hepatopetal portal venous flow demonstrated. GALLBLADDER: Unremarkable. No gallstones. COMMON BILE DUCT: Measures 3 mm. No stones. No dilatation. PANCREAS: Unremarkable as visualized. No mass. No ductal dilatation. RIGHT KIDNEY: Measures 10.4 cm in length. Normal echogenicity. No calculus, mass, or hydronephrosis. AORTA: No aneurysmal dilatation. IVC: Unremarkable. OTHER FINDINGS: None . IMPRESSION: No evidence of cholelithiasis or cholecystitis. Normal examination
== END 2017-09-10 10:29 | disposition home or self-care (01) ==
LOC: H.ER 08:26
DX: K29.70 Gastritis, unspecified, without bleeding (principal); R10.13 Epigastric pain
CPT/HCPCS: 76705; 80053; 83690; 85025; 96374; 96375; 99285; J2270; J2405; J7040

== ENCOUNTER 2018-07-15 10:22 | Emergency (ER) | payer BC ==
[2018-07-15] MEDS ORDERED: Sodium Chloride 0.9% 1,000 ML IV STA (11:09)
[2018-07-15 11:55] LABS: ALB/GLOB RATIO 1.4 (1.0-2.1); ALBUMIN 4.9 g/dL (3.5-5.0); ALT/SGPT 30 U/L (21-72); AST/SGOT 31 U/L (17-59); BLOOD UREA NITROGEN 16 mg/dl (9-20); CALCIUM 9.8 mg/dL (8.4-10.2); GFR NON-AFRICAN AMERICAN > 60; LIPASE 74 U/L (23-300)
[2018-07-15 12:05] LABS: BASO # 0.1 K/uL (0.0-0.2); BASO % 0.4 % (0.0-2.0); EOS % 0.1 % (0.0-4.0); HEMOGLOBIN 14.4 g/dL (12.0-18.0); LYMPH # 1.6 K/uL (1.0-4.3); MEAN CELL VOLUME 97.8 fl (80.0-94.0); MEAN CORPUSCULAR HEMOGLOBIN 31.4 pg (27.0-31.0); MEAN CORPUSCULAR HGB CONC 32.1 g/dL (33.0-37.0); MEAN PLATELET VOLUME 8.8 fl (7.2-11.7); MONO # 0.6 K/uL (0.0-0.8); MONO % 3.7 % (0.0-10.0); NEUT # 13.5 K/uL (1.8-7.0); NEUT % 85.8 % (50.0-75.0); RBC 4.59 Mil/uL (4.40-5.90); RED CELL DISTRIBUTION WIDTH 13.9 % (11.5-14.5); WHITE BLOOD COUNT 15.8 K/uL (4.8-10.8)
[2018-07-15] MEDS ORDERED: Sodium Chloride 0.9% 50 ML IV ONE (12:43)
[2018-07-15] MEDS ORDERED: Iohexol 300 100 ML IJ ONE (12:43)
--- NOTE | 2018-07-15 13:07 | ED PDOC ---
HPI: Abdomen Time Seen by Provider: 07/15/18 10:51 Chief Complaint (Nursing): Abdominal Pain Chief Complaint (Provider): abdominal pain, vomiting History Per: Patient History/Exam Limitations: no limitations Onset/Duration Of Symptoms: Days (1), Sudden Onset Context: Food Location Of Pain/Discomfort: RUQ, Epigastric Quality Of Discomfort: Sharp Associated Symptoms: Chills, Nausea, Vomiting, Loss Of Appetite. denies: D iarrhea Exacerbating Factors: None Additional Complaint(s): 32yo male c/o abdominal pain, nonbloody vomiting, chills started this morning. Denies headache, sore throat, or dizziness. Does not some body aches. Denies drug or etoh use. Denies prior hx of similar pain. Past Medical History Reviewed: Historical Data, Nursing Documentation, Vital Signs Vital Signs: Last Vital Signs Temp 97.8 F 07/15/18 10:24 Pulse 75 07/15/18 10:24 Resp 16 07/15/18 10:24 BP 156/93 H 07/15/18 10:24 Pulse Ox 100 07/15/18 10:24 - Medical History PMH: No Chronic Diseases Denies: Chronic Kidney Disease - Surgical History Surgical History: No Surg Hx - Family History Family History: States: Unknown Family Hx - Living Arrangements Living Arrangements: With Family - Social History Alcohol: None Drugs: Denies - Home Medications Home Medications: Ambulatory Orders Medication Instructions Recorded Amoxicillin/Clavulanate [Augmentin 1 tab PO BID #14 tab 07/15/18 875 MG-125 MG] Dicyclomine [Bentyl] 10 mg PO TID PRN #10 cap 07/15/18 Metoclopramide [Reglan] 10 mg PO TID PRN #10 tab 07/15/18 RX: Ibuprofen [Motrin Tab] 600 mg PO Q6 PRN #15 tab 07/15/18 Ranitidine HCl [Zantac] 150 mg PO BID #20 tablet 07/15/18 - Allergies Allergies/Adverse Reactions: Allergies Allergy/AdvReac Type Severity Reaction Status Date / Time No Known Allergies Allergy Verified 07/15/18 10:27 Review of Systems Constitutional: Positive for: Chills. Negative for: Weight loss Eyes: Negative for: Vision Change ENT: Negative for: Nose Discharge, Mouth Swelling, Throat Pain Cardiovascular: Negative for: Light Headedness Respiratory: Negative for: Cough, Shortness of Breath Gastrointestinal: Positive for: Nausea, Vomiting, Abdominal Pain. Negative for: Diarrhea, Melena Genitourinary Male: Negative for: Dysuria Musculoskeletal: Negative for: Neck Pain Skin: Negative for: Rash, Lesions Neurological: Negative for: Weakness, Numbness Psych: Negative for: Suicidal ideation Physical Exam - Reviewed Nursing Documentation Reviewed: Yes Vital Signs Reviewed: Yes - Physical Exam Appears: Positive for: Well, Non-toxic, No Acute Distress Head Exam: Positive for: ATRAUMATIC, NORMAL INSPECTION, NORMOCEPHALIC Skin: Positive for: Normal Color, Warm, DRY Eye Exam: Positive for: EOMI, Normal appearance, PERRL ENT: Positive for: Normal ENT Inspection Neck: Positive for: Normal, Painless ROM Cardiovascular/Chest: Positive for: Regular Rate, Rhythm Respiratory: Positive for: CNT, Normal Breath Sounds Gastrointestinal/Abdominal: Positive for: Soft, Tenderness (upper abd tenderness). Negative for: Guarding, Rebound Back: Positive for: Normal Inspection Extremity: Positive for: Normal ROM Neurologic/Psych: Positive for: Alert, Oriented. Negative for: Motor/Sensory Deficits - Laboratory Results Result Diagrams: 07/15/18 11:30 07/15/18 11:30 Lab Results: Total Bilirubin 0.6 mg/dl (0.2-1.3) 07/15/18 11:30 AST 31 U/L (17-59) 07/15/18 11:30 ALT 30 U/L (21-72) 07/15/18 11:30 Alkaline Phosphatase 86 U/L (38-126) 07/15/18 11:30 Total Protein 8.5 G/DL (6.3-8.2) H 07/15/18 11:30 Albumin 4.9 g/dL (3.5-5.0) 07/15/18 11:30 Globulin 3.6 gm/dL (2.2-3.9) 07/15/18 11:30 Albumin/Globulin Ratio 1.4 (1.0-2.1) 07/15/18 11:30 Lipase 74 U/L (23-300) 07/15/18 11:30 - ECG O2 Sat by Pulse Oximetry: 100 Pulse Ox Interpretation: Normal Medical Decision Making Medical Decision Making: workup for abd pain w vomiting and chills initiated labs reviewed elev WBC flu neg chem unremarkable CT abd pelv added on given persistent symptoms CT report reviewed Utox +THC, concern for hyperemesis of cannabinoids, haldol 2.5mg and capsaican cream to anterior abd wall initiated with some improvement. Results d/w patient and encouraged to stop THC. Rx augmentin for colitis, followup PMD/GI. Disposition - Clinical Impression Clinical Impression: Abdominal pain, Cannabinoid hyperemesis syndrome, Enterocolitis - Patient ED Disposition Is Patient to be Admitted: No Counseled Patient/Family Regarding: Studies Performed, Diagnosis - Disposition Referrals: Krunal Garza MD [Medical Doctor] - Disposition: Routine/Home Disposition Time: 18:00 Condition: STABLE Additional Instructions: Please research "Hyperemesis of Cannabinoid Syndrome" online. Try to avoid marijuana use. Return to ER for any new or worsening symptoms. Use reglan 10mg every 8hrs as needed for symptoms. Prescriptions: Amoxicillin/Clavulanate [Augmentin 875 MG-125 MG] 1 tab PO BID #14 tab Dicyclomine [Bentyl] 10 mg PO TID PRN #10 cap PRN Reason: Gi Distress RX: Ibuprofen [Motrin Tab] 600 mg PO Q6 PRN #15 tab PRN Reason: Pain, Moderate (4-7) Metoclopramide [Reglan] 10 mg PO TID PRN #10 tab PRN Reason: Nausea/Vomiting Ranitidine HCl [Zantac] 150 mg PO BID #20 tablet Instructions: Nausea and Vomiting, Adult (DC), Stomach Ache and Stomach Upset Forms: [employer] (Filipino)
[2018-07-15] MEDS ORDERED: Morphine 4 MG/ML VIAL ONE (13:53)
[2018-07-15] MEDS ORDERED: Morphine 4 MG/ML VIAL IV STA (14:02)
[2018-07-15 14:39] LABS: URINE BILIRUBIN NEGATIVE (NEGATIVE); URINE BLOOD NEGATIVE (NEGATIVE); URINE CLARITY SLIGHTY-CLOUDY (Clear); URINE COLOR YELLOW (YELLOW); URINE GLUCOSE (UA) NEG (NEGATIVE); URINE LEUKOCYTE ESTERASE NEG Leu/uL (Negative); URINE PROTEIN 100 mg/dL (NEGATIVE); URINE UROBILINOGEN 0.2-1.0 mg/dL (0.2-1.0)
[2018-07-15 15:14] LABS: BARBITURATES, UR NEGATIVE (NEGATIVE); BENZODIAZEPINES, UR NEGATIVE (NEGATIVE); OPIATES, UR NEGATIVE (NEGATIVE); PHENCYCLIDINE, UR NEGATIVE (NEGATIVE)
--- NOTE | 2018-07-15 15:44 | CT ---
Date of service: 07/15/2018 PROCEDURE: CT Abdomen and Pelvis with contrast HISTORY: upper abd pain vomiting COMPARISON: Not available TECHNIQUE: Contrast dose: 95 cc Omnipaque 300 Radiation dose: Total exam DLP = 286.5 mGy-cm. This CT exam was performed using one or more of the following dose reduction techniques: Automated exposure control, adjustment of the mA and/or kV according to patient size, and/or use of iterative reconstruction technique. FINDINGS: LOWER THORAX: Unremarkable. LIVER: Unremarkable. No gross lesion or ductal dilatation. GALLBLADDER AND BILE DUCTS: Unremarkable. PANCREAS: Unremarkable. No gross lesion or ductal dilatation. SPLEEN: Unremarkable. ADRENALS: Unremarkable. No mass. KIDNEYS AND URETERS: Unremarkable. No hydronephrosis. No solid mass. VASCULATURE: Unremarkable. No aortic aneurysm. No aortic atherosclerotic calcification or mural plaque present. BOWEL: There is mild colitis involving the ascending, transverse and descending colon but sparing the rectosigmoid colon. Nonspecific. There is an enteritis involving multiple loops of jejunum with circumferential mural thickening. No evidence of bowel obstruction. APPENDIX: Not positively identified. No secondary findings to suggest acute appendicitis. PERITONEUM: Unremarkable. No free fluid. No free air. LYMPH NODES: Unremarkable. No enlarged lymph nodes. BLADDER: Nondistended REPRODUCTIVE: Normal prostate BONES: No acute fracture. OTHER FINDINGS: None. IMPRESSION: Nonspecific enterocolitis. No bowel obstruction. No additional abnormality.
[2018-07-15 17:02] VITALS: O2SAT 100
[2018-07-15 18:50] VITALS: BP 135/86; PULSE 65; RESP 12; TEMP 99.1
== END 2018-07-15 18:46 | disposition home or self-care (01) ==
LOC: MERGE 10:22 → H.ER 10:22
DX: T40.7X5A Adverse effect of cannabis (derivatives), initial encounter (principal); K52.9 Noninfective gastroenteritis and colitis, unspecified
CPT/HCPCS: 74177; 80053; 81003; 83690; 85025; 87804; 96361; 96374; 96375; 96376; 99285; G0480; J1630; J1885; J2270; J2405; J7030; Q9967